=== PATIENT | male | born 1960 | race Caucasian/White ===

== ENCOUNTER 2018-09-13 11:22 | Inpatient (IN) | payer OTHER ==
[~2018-09-13] VITALS: Ht 172.7 cm; Wt 86.0 kg
[~2018-09-13 11:22] MED LIST: EPINEPHRINE 1 MG/ML, 1ML ONE; KETOROLAC 60 MG/2 ML ONE; ROPIvacaine/PF 0.2%, 20 ML ONE; SODIUM CHLORIDE 0.9% 0 ML ONE; TRANEXAMIC ACID 100 MG/ML, 10ML ONE; VANCOMYCIN 1,000 MG ONE
[2018-09-13] MEDS ORDERED: VANCOMYCIN PER PHARMACY MC STA (12:25)
[2018-09-13] MEDS ORDERED: OXYC5CAP2 PO (12:45)
[2018-09-13] MEDS ORDERED: OLME40TA12 PO (12:45)
[2018-09-13] MEDS ORDERED: AMLO10TA6 PO (12:45)
[2018-09-13] MEDS ORDERED: ALLO300T PO (12:45)
[2018-09-13] MEDS ORDERED: INDO50CA5 PO (12:45)
[2018-09-13] MEDS ORDERED: CELE200C PO (12:45)
[2018-09-13] MEDS ORDERED: LACTATED RINGERS 1,000 ML IV SCH (12:48)
[2018-09-13 12:51] VITALS: BP 125/79
[2018-09-13 12:59] LABS: BASOPHILS # (AUTO) 0.04 x10^3/uL (0-0.1); BASOPHILS % (AUTO) 0 % (0-1); EOSINOPHILS # (AUTO) 0.06 x10^3/uL (0-0.4); EOSINOPHILS % (AUTO) 1 % (1-7); LYMPHOCYTES # (AUTO) 1.67 x10^3/uL (1-3.4); LYMPHOCYTES % (AUTO) 14 % (22-44); MD NO; MEAN CORPUSCULAR HEMOGLOBIN 30.7 pg (27.5-34.5); MEAN CORPUSCULAR HGB CONC 33.7 g/dL (33.2-36.2); MEAN CORPUSCULAR VOLUME 91.1 fL (81-97); MEAN PLATELET VOLUME 7.2 fL (7.4-10.4); MONOCYTES % (AUTO) 7 % (2-9); NEUTROPHILS # (AUTO) 9.68 x10^3/uL (1.8-6.8); NEUTROPHILS % (AUTO) 79 % (42-75); PLATELET COUNT 334 x10^3/uL (130-400); RED BLOOD COUNT 5.01 x10^6/uL (4.38-5.82); RED CELL DISTRIBUTION WIDTH 15.1 % (9.4-14.8)
[2018-09-13] MEDS ORDERED: PLEASE ENTER HEIGHT AND WEIGHT MC SCH (13:00)
[2018-09-13] MEDS ORDERED: ACETAMINOPHEN 500 MG TABLET PO ONE (13:00)
[2018-09-13] MEDS ORDERED: GABAPENTIN 300 MG CAPSULE PO ONE (13:00)
[2018-09-13 13:09] LABS: ANION GAP 11 mmol/L (5-15); CALCIUM 8.5 mg/dL (8.5-10.1); CHLORIDE 102 mmol/L (98-107); CREATININE 1.17 mg/dL (0.7-1.3)
[2018-09-13 13:09] LABS: INTERNATIONAL NORMALIZED RATIO 1.18 (0.93-1.1); PROTHROMBIN TIME 12.4 Seconds (9.6-11.5)
[2018-09-13] MEDS ORDERED: VANCOMYCIN 2,500 MG in SODIUM CHLORIDE 0.9% 500 ML IV ONE (13:30)
[2018-09-13] MEDS ORDERED: MIDAZOLAM 1 MG/ML, 2ML ONE (13:30)
[2018-09-13] MEDS ORDERED: FENTANYL PF 100 MCG/2ML ONE ×5 (13:31→16:37)
[2018-09-13] MEDS ORDERED: PROPOFOL 10 MG/ML, 20ML ONE (13:33)
[2018-09-13] MEDS ORDERED: ROCURONIUM 10MG/ML,5ML ONE (13:33)
[2018-09-13] MEDS ORDERED: LIDOCAINE-MPF 2% ,5ML ONE (13:33)
[2018-09-13] MEDS ORDERED: CEFAZOLIN 1,000 MG ONE ×2 (13:35)
[2018-09-13 13:51] LABS: MICROSCOPIC INDICATED
[2018-09-13] MEDS ORDERED: ROPIvacaine/PF 0.2%, 20 ML ONE (14:07)
[2018-09-13] MEDS ORDERED: PHENYLEPHRINE 10 MG/ML ONE (14:24)
[2018-09-13] MEDS ORDERED: NEOSTIGMINE 1 MG/ML, 10ML ONE (14:24)
[2018-09-13] MEDS ORDERED: GLYCOPYRROLATE 0.2MG/1ML, 5ML ONE (14:24)
[2018-09-13] MEDS ORDERED: DEXAMETHASONE 4 MG/ML, 1ML ONE (14:24)
[2018-09-13 14:29] LABS: CULTURE INDICATED? NO
[2018-09-13] MEDS ORDERED: FENTANYL PF 250 MCG/5ML ONE (14:50)
[2018-09-13] MEDS ORDERED: VANCOMYCIN 1,000 MG ONE (15:30)
[2018-09-13] MEDS ORDERED: ONDANSETRON 2MG/ML, 2ML ONE ×2 (15:38)
[2018-09-13] MEDS: D5%-0.45% NACL 1,000 ML IV SCH (16:13)
[2018-09-13] MEDS ORDERED: SENNA/DOCUSATE TABLET PO PRN (16:30)
[2018-09-13] MEDS ORDERED: PROMETHAZINE 25 MG/ML, 1ML IM PRN (16:30)
[2018-09-13] MEDS ORDERED: ALUMINUM/MAG/SIMETHICONE 30 ML UDC PO PRN (16:30)
[2018-09-13] MEDS ORDERED: ONDANSETRON 2MG/ML, 2ML IV PRN (16:30)
[2018-09-13] MEDS ORDERED: DIAZEPAM 5 MG TABLET PO PRN (16:30)
[2018-09-13] MEDS ORDERED: PROMETHAZINE 12.5 MG SUPP PR PRN (16:30)
[2018-09-13] MEDS ORDERED: HYDROmorphone 2 MG/ML, 1ML IV PRN (16:30)
[2018-09-13] MEDS ORDERED: HYDROcodone/APAP 5/325 TABLET PO PRN (16:30)
[2018-09-13] MEDS ORDERED: LORazepam 1MG TABLET PO PRN (16:30)
[2018-09-13] MEDS ORDERED: DIPHENHYDRAMINE 50 MG CAPSULE PO PRN (16:30)
[2018-09-13] MEDS ORDERED: MAGNESIUM HYDROXIDE 8%, 30ML UDC PO PRN (16:30)
[2018-09-13] MEDS ORDERED: BISACODYL 10 MG SUPP PR PRN (16:30)
[2018-09-13] MEDS ORDERED: VANCOMYCIN PER PHARMACY MC PRN (16:30)
[2018-09-13] MEDS ORDERED: ZOLPIDEM 5MG TABLET PO PRN (16:30)
[2018-09-13] MEDS ORDERED: ONDANSETRON 4 MG TABLET PO PRN (16:30)
[2018-09-13] MEDS ORDERED: ACETAMINOPHEN 650 MG/20.3 ML UDC PO PRN (16:30)
[2018-09-13] MEDS ORDERED: OXYcodone 5 MG/5 ML ORAL.SOL UDC ONE (16:37)
[2018-09-13] MEDS ORDERED: hydrALAzine 20 MG/ML, 1ML IV PRN (17:00)
[2018-09-13] MEDS ORDERED: HALOPERIDOL 5 MG/ML IV PRN (17:00)
[2018-09-13] MEDS ORDERED: TRANEXAMIC ACID 1,000 MG in SODIUM CHLORIDE 0.9% 100 ML IVPB ONE (17:00)
[2018-09-13] MEDS ORDERED: FENTANYL PF 100 MCG/2ML IV PRN (17:00)
[2018-09-13] MEDS ORDERED: HYDROmorphone 2 MG/ML, 1ML IVPush PRN (17:00)
[2018-09-13] MEDS ORDERED: PROMETHAZINE 25 MG/ML, 1ML IV PRN (17:00)
[2018-09-13] MEDS ORDERED: LORazepam 2 MG/ML, 1ML IVPush PRN (17:00)
[2018-09-13] MEDS ORDERED: MEPERIDINE/PF 50 MG/ML IVPush PRN (17:00)
[2018-09-13] MEDS ORDERED: OXYcodone 5 MG/5 ML ORAL.SOL UDC PO PRN (17:00)
[2018-09-13] MEDS ORDERED: HYDROmorphone 2 MG/ML, 1ML ONE (17:36)
[2018-09-13] MEDS ORDERED: PHARMACOKINETIC CONSULTATION MC ONE (19:00)
[2018-09-13] MEDS ORDERED: PHARMACOKINETIC MONITORING MC PRN (19:00)
[2018-09-13 19:15] VITALS: BP 112/73
[2018-09-13] MEDS: AMLODIPINE 10 MG TAB PO SCH (21:12)
[2018-09-13] MEDS: DOCUSATE 100 MG CAPSULE PO SCH (21:12)
[2018-09-13] MEDS: CEFAZOLIN PMX 2GM/50ML 50 ML IVPB SCH (22:31)
[2018-09-14 00:41] VITALS: BP 103/62
[2018-09-14] MEDS: D5%-0.45% NACL 1,000 ML IV SCH ×2 (01:27→15:22)
[2018-09-14] MEDS: OXYcodone IR 5MG TABLET PO PRN ×4 (04:00→20:48)
[2018-09-14 05:32] LABS: ALBUMIN 2.1 g/dL (3.4-5.0); ANION GAP 7 mmol/L (5-15); CALCIUM 7.8 mg/dL (8.5-10.1); CHLORIDE 106 mmol/L (98-107); CREATININE 1.04 mg/dL (0.7-1.3)
[2018-09-14 05:48] LABS: BASOPHILS % (AUTO) 0 % (0-1); EOSINOPHILS # (AUTO) 0.22 x10^3/uL (0-0.4); EOSINOPHILS % (AUTO) 2 % (1-7); LYMPHOCYTES # (AUTO) 1.07 x10^3/uL (1-3.4); LYMPHOCYTES % (AUTO) 8 % (22-44); MD NO; MEAN CORPUSCULAR HEMOGLOBIN 31.2 pg (27.5-34.5); MEAN CORPUSCULAR HGB CONC 33.7 g/dL (33.2-36.2); MEAN CORPUSCULAR VOLUME 92.7 fL (81-97); MEAN PLATELET VOLUME 7.6 fL (7.4-10.4); MONOCYTES # (AUTO) 0.86 x10^3/uL (0.2-0.8); MONOCYTES % (AUTO) 7 % (2-9); NEUTROPHILS # (AUTO) 11.17 x10^3/uL (1.8-6.8); NEUTROPHILS % (AUTO) 84 % (42-75); PLATELET COUNT 313 x10^3/uL (130-400)
[2018-09-14] MEDS: RIVAROXABAN 10 MG TABLET PO SCH (06:12)
[2018-09-14] MEDS: CEFAZOLIN PMX 2GM/50ML 50 ML IVPB SCH (06:12)
[2018-09-14] MEDS ORDERED: RIVA10TA PO (08:33)
[2018-09-14] MEDS ORDERED: SENN1TAB8 PO (08:33)
[2018-09-14] MEDS ORDERED: OXYC5TAB3 PO (08:33)
[2018-09-14 08:55] VITALS: BP 114/69
[2018-09-14 08:55] LABS: HCT (SEDRATE) 38.8 % (39.2-51.8)
[2018-09-14] MEDS ORDERED: VANCOMYCIN 2,500 MG in SODIUM CHLORIDE 0.9% 500 ML IV SCH (09:00)
[2018-09-14] MEDS: ALLOPURINOL 300 MG TABLET PO SCH (09:11)
[2018-09-14] MEDS: MULTIVITAMINS/MINERALS TABLET PO SCH (09:11)
[2018-09-14] MEDS: LOSARTAN 50MG TABLET PO SCH (09:11)
[2018-09-14] MEDS: DOCUSATE 100 MG CAPSULE PO SCH ×2 (09:11→20:48)
[2018-09-14] MEDS ORDERED: CEFTRIAXONE PMX 2GM/50ML 50 ML IV SCH (13:30)
[2018-09-14 14:31] VITALS: BP 110/63
[2018-09-14] MEDS: KETOROLAC 30 MG/1 ML IV SCH (16:48)
[2018-09-14 20:00] VITALS: BP 125/73
[2018-09-14] MEDS: AMLODIPINE 10 MG TAB PO SCH (20:48)
[2018-09-14] MEDS: MICONAZOLE 2% TP SCH (22:04)
[2018-09-15] MEDS: KETOROLAC 30 MG/1 ML IV SCH ×2 (00:02→08:35)
[2018-09-15] MEDS: D5%-0.45% NACL 1,000 ML IV SCH ×3 (00:30→20:30)
[2018-09-15 01:04] VITALS: BP 122/71
[2018-09-15] MEDS: OXYcodone IR 5MG TABLET PO PRN ×5 (02:13→22:53)
[2018-09-15] MEDS: RIVAROXABAN 10 MG TABLET PO SCH (05:34)
[2018-09-15 07:32] VITALS: BP 119/71
[2018-09-15] MEDS: ALLOPURINOL 300 MG TABLET PO SCH (08:36)
[2018-09-15] MEDS: MULTIVITAMINS/MINERALS TABLET PO SCH (08:36)
[2018-09-15] MEDS: LOSARTAN 50MG TABLET PO SCH (08:36)
[2018-09-15] MEDS: DOCUSATE 100 MG CAPSULE PO SCH ×2 (08:36→19:43)
[2018-09-15] MEDS: MICONAZOLE 2% TP SCH ×2 (10:01→19:50)
[2018-09-15] MEDS: DAPTOMYCIN 750 MG in SODIUM CHLORIDE 0.9% 100 ML IVPB SCH (13:56)
[2018-09-15 17:00] VITALS: BP 123/74
[2018-09-15] MEDS: AMLODIPINE 10 MG TAB PO SCH (19:43)
[2018-09-15 19:46] VITALS: BP 131/77
[2018-09-16 02:58] VITALS: BP 121/75
[2018-09-16] MEDS: OXYcodone IR 5MG TABLET PO PRN ×5 (03:07→22:22)
[2018-09-16] MEDS: D5%-0.45% NACL 1,000 ML IV SCH ×2 (05:51→16:30)
[2018-09-16] MEDS: RIVAROXABAN 10 MG TABLET PO SCH (05:51)
[2018-09-16 06:16] LABS: BASOPHILS % (AUTO) 1 % (0-1); EOSINOPHILS # (AUTO) 0.14 x10^3/uL (0-0.4); EOSINOPHILS % (AUTO) 2 % (1-7); LYMPHOCYTES % (AUTO) 23 % (22-44); MD NO; MEAN CORPUSCULAR HEMOGLOBIN 31.2 pg (27.5-34.5); MEAN CORPUSCULAR HGB CONC 34.2 g/dL (33.2-36.2); MEAN CORPUSCULAR VOLUME 91.3 fL (81-97); MONOCYTES # (AUTO) 0.84 x10^3/uL (0.2-0.8); MONOCYTES % (AUTO) 11 % (2-9); NEUTROPHILS # (AUTO) 5.04 x10^3/uL (1.8-6.8); NEUTROPHILS % (AUTO) 64 % (42-75); PLATELET COUNT 388 x10^3/uL (130-400); RED BLOOD COUNT 3.64 x10^6/uL (4.38-5.82); RED CELL DISTRIBUTION WIDTH 14.5 % (9.4-14.8)
[2018-09-16 06:19] LABS: HCT (SEDRATE) 33.2 % (39.2-51.8)
[2018-09-16 06:23] LABS: ANION GAP 7 mmol/L (5-15); CALCIUM 7.5 mg/dL (8.5-10.1); CHLORIDE 104 mmol/L (98-107)
[2018-09-16 06:32] LABS: ALANINE AMINOTRANSFERASE 47 U/L (12-78); ALKALINE PHOSPHATASE 122 U/L (45-117); BILIRUBIN,TOTAL 0.8 mg/dL (0.2-1.0); CREATINE KINASE, TOTAL 24 U/L (39-308); CREATININE 0.91 mg/dL (0.7-1.3); TOTAL PROTEIN 6.8 g/dL (6.4-8.2)
[2018-09-16 07:10] VITALS: BP 123/74
[2018-09-16] MEDS: LOSARTAN 50MG TABLET PO SCH (08:26)
[2018-09-16] MEDS: MULTIVITAMINS/MINERALS TABLET PO SCH (08:26)
[2018-09-16] MEDS: DOCUSATE 100 MG CAPSULE PO SCH ×2 (08:26→20:41)
[2018-09-16] MEDS: ALLOPURINOL 300 MG TABLET PO SCH (08:26)
[2018-09-16] MEDS: MICONAZOLE 2% TP SCH ×2 (08:28→21:00)
[2018-09-16 13:37] VITALS: BP 107/61
[2018-09-16] MEDS: DAPTOMYCIN 750 MG in SODIUM CHLORIDE 0.9% 100 ML IVPB SCH (14:45)
[2018-09-16 20:06] VITALS: BP 129/72
[2018-09-16] MEDS: AMLODIPINE 10 MG TAB PO SCH (20:42)
[2018-09-17 01:20] VITALS: BP 127/77
[2018-09-17] MEDS: D5%-0.45% NACL 1,000 ML IV SCH ×3 (01:33→21:04)
[2018-09-17] MEDS: OXYcodone IR 5MG TABLET PO PRN ×4 (06:10→23:58)
[2018-09-17] MEDS: RIVAROXABAN 10 MG TABLET PO SCH (06:10)
[2018-09-17 06:57] VITALS: BP 107/65
[2018-09-17] MEDS: MULTIVITAMINS/MINERALS TABLET PO SCH (07:57)
[2018-09-17] MEDS: MICONAZOLE 2% TP SCH ×2 (07:57→21:08)
[2018-09-17] MEDS: ALLOPURINOL 300 MG TABLET PO SCH (07:57)
[2018-09-17] MEDS: LOSARTAN 50MG TABLET PO SCH (07:58)
[2018-09-17] MEDS: DOCUSATE 100 MG CAPSULE PO SCH ×2 (07:58→21:08)
[2018-09-17 13:36] VITALS: BP 115/71
[2018-09-17] MEDS: DAPTOMYCIN 750 MG in SODIUM CHLORIDE 0.9% 100 ML IVPB SCH (14:32)
[2018-09-17 19:41] VITALS: BP 114/72
[2018-09-17] MEDS: AMLODIPINE 10 MG TAB PO SCH (21:08)
[2018-09-18 00:48] VITALS: BP 123/73
[2018-09-18] MEDS: OXYcodone IR 5MG TABLET PO PRN ×2 (04:08→08:54)
[2018-09-18] MEDS: RIVAROXABAN 10 MG TABLET PO SCH (05:43)
[2018-09-18 08:00] VITALS: BP 114/72
[2018-09-18] MEDS: D5%-0.45% NACL 1,000 ML IV SCH (08:30)
[2018-09-18] MEDS: LOSARTAN 50MG TABLET PO SCH (08:54)
[2018-09-18] MEDS: ALLOPURINOL 300 MG TABLET PO SCH (08:54)
[2018-09-18] MEDS: MULTIVITAMINS/MINERALS TABLET PO SCH (08:54)
[2018-09-18] MEDS: DOCUSATE 100 MG CAPSULE PO SCH (08:54)
[2018-09-18] MEDS: MICONAZOLE 2% TP SCH (08:58)
[2018-09-18 13:47] VITALS: BP 103/56
[2018-09-18] MEDS: DAPTOMYCIN 750 MG in SODIUM CHLORIDE 0.9% 100 ML IVPB SCH (13:58)
== END 2018-09-18 15:38 | disposition home or self-care (01) | DRG 467 ==
LOC: ORIP 11:22 → 4NOR 18:13 → DCLOUNGE 09-18 15:23
PROVIDERS: ADMIT Orthopaedic Surgery; ATTEND Orthopaedic Surgery
PROC: 0SRD0EZ Replacement of Left Knee Joint with Articulating Spacer, Open Approach (ICD-10-PCS; 2018-09-13)
PROC: 3E0T3BZ Introduction of Anesthetic Agent into Peripheral Nerves and Plexi, Percutaneous Approach (ICD-10-PCS; 2018-09-13)
PROC: 0SPD0JZ Removal of Synthetic Substitute from Left Knee Joint, Open Approach (ICD-10-PCS; principal; 2018-09-13 13:45)
PROC: 02HV33Z Insertion of Infusion Device into Superior Vena Cava, Percutaneous Approach (ICD-10-PCS; 2018-09-14)
PROC: B5181ZA Fluoroscopy of Superior Vena Cava using Low Osmolar Contrast, Guidance (ICD-10-PCS; 2018-09-14)
PROC: B548ZZA Ultrasonography of Superior Vena Cava, Guidance (ICD-10-PCS; 2018-09-14)
DX: T84.54XA Infection and inflammatory reaction due to internal left knee prosthesis, initial encounter (principal); M00.9 Pyogenic arthritis, unspecified; I10 Essential (primary) hypertension; Z96.652 Presence of left artificial knee joint; M10.9 Gout, unspecified; Y83.1 Surgical operation with implant of artificial internal device as the cause of abnormal reaction of the patient, or of later complication, without mention of misadventure at the time of the procedure; B35.3 Tinea pedis; Z88.0 Allergy status to penicillin; Z83.3 Family history of diabetes mellitus; Z86.718 Personal history of other venous thrombosis and embolism
CPT/HCPCS: 36415; 73560; 77001; 87806; J3490; 36569; 76937; 80048; 80053; 81001; 82040; 82550; 85025; 85610; 85651; 85730; 86140; 87015; 87070; 87075; 87081; 87102; 87116; 87147; 87181; 87205; 87206; 89051; 93005; C1713; G0378; J0171; J0690; J0696; J0878; J1100; J1170; J1885; J2250; J2405; J2704; J2710; J2795; J3010; J3370; C1751; C1776; G0475; J2370; J7040; J7120

== ENCOUNTER 2018-09-25 11:38 | Emergency (ER) | payer OTHER ==
[~2018-09-25] VITALS: Ht 172.7 cm; Wt 90.0 kg
[~2018-09-25 11:38] MED LIST changes: +ALLO300T PO; +AMLO10TA6 PO; +CELE200C PO; -EPINEPHRINE 1 MG/ML, 1ML ONE; +INDO50CA5 PO; -KETOROLAC 60 MG/2 ML ONE; +OLME40TA12 PO; +OXYC5CAP2 PO; +OXYC5TAB3 PO; +RIVA10TA PO; -ROPIvacaine/PF 0.2%, 20 ML ONE; +SENN1TAB8 PO; -SODIUM CHLORIDE 0.9% 0 ML ONE; -TRANEXAMIC ACID 100 MG/ML, 10ML ONE; -VANCOMYCIN 1,000 MG ONE
--- NOTE | 2018-09-25 12:34 | NUR ---
patient is safe in [facility], accompanied by family, call light in reach, CMS intact in both legs, patient reports he was sent from [facility]'s office r/t labs "kidney numbers"
[2018-09-25 13:07] LABS: BASOPHILS # (AUTO) 0.05 x10^3/uL (0-0.1); BASOPHILS % (AUTO) 1 % (0-1); EOSINOPHILS # (AUTO) 0.08 x10^3/uL (0-0.4); EOSINOPHILS % (AUTO) 1 % (1-7); LYMPHOCYTES # (AUTO) 1.63 x10^3/uL (1-3.4); LYMPHOCYTES % (AUTO) 23 % (22-44); MD NO; MEAN CORPUSCULAR HEMOGLOBIN 30.1 pg (27.5-34.5); MEAN CORPUSCULAR HGB CONC 33.3 g/dL (33.2-36.2); MEAN CORPUSCULAR VOLUME 90.2 fL (81-97); MEAN PLATELET VOLUME 6.5 fL (7.4-10.4); MONOCYTES # (AUTO) 0.71 x10^3/uL (0.2-0.8); MONOCYTES % (AUTO) 10 % (2-9); NEUTROPHILS # (AUTO) 4.71 x10^3/uL (1.8-6.8); NEUTROPHILS % (AUTO) 66 % (42-75); PLATELET COUNT 641 x10^3/uL (130-400); RED BLOOD COUNT 4.09 x10^6/uL (4.38-5.82); RED CELL DISTRIBUTION WIDTH 14.1 % (9.4-14.8)
[2018-09-25 13:20] LABS: ALBUMIN 2.9 g/dL (3.4-5.0); ANION GAP 8 mmol/L (5-15); CALCIUM 8.8 mg/dL (8.5-10.1); CHLORIDE 103 mmol/L (98-107); CREATININE 1.17 mg/dL (0.7-1.3)
[2018-09-25 13:22] LABS: CREATINE KINASE, TOTAL 28 U/L (39-308)
--- NOTE | 2018-09-25 13:30 | NUR ---
paged id dr manley for dr whipple
--- NOTE | 2018-09-25 13:55 | NUR ---
dr ceja id returned call to dr whipple
[2018-09-25 15:15] VITALS: BP 114/68
[2018-09-25 15:30] LABS: HCT (SEDRATE) 36.9 % (39.2-51.8)
[2018-09-25] MEDS ORDERED: SODIUM CHLORIDE 0.9% 1,000ML IVBOLUS ONE (15:30)
== END 2018-09-25 16:08 | disposition home or self-care (01) ==
LOC: ED 12:32
DX: T36.8X5A Adverse effect of other systemic antibiotics, initial encounter (principal); Y92.89 Other specified places as the place of occurrence of the external cause
CPT/HCPCS: 36415; 80048; 82040; 82550; 85025; 85651; 86140; 99283; J7030